=== PATIENT | male | born 1960 | race Caucasian/White ===

== ENCOUNTER 2021-06-21 16:31 | Inpatient (IN) ==
[2021-06-21 17:04] LABS: Basophils % 0.5 % (0.0-0.8); Eosinophils # 0.1 10*3/uL (0.0-0.87); Eosinophils % 1.8 % (0.00-10.9); Hematocrit 40.7 VOL% (42.0-52.0); Hemoglobin 13.7 GM/DL (14.0-18.0); Immature Granulocytes % 0.2 %; Immature Granulocytes Absolute 0.01 #; Lymphocytes # 1.7 10*3/uL (1.4-4.0); Lymphocytes % 25.6 % (21.2-54.2); Mean Corpuscular HGB Conc 33.7 GM/DL (32-36); Mean Corpuscular Volume 90.6 FL (87-102); Mean Platelet Volume 9.6 FL (9.6-12.0); Monocytes % 6.4 % (1.7-12.7); Neutrophils % 65.5 % (38.7-73.9); Platelet Count 215 T/CUMM (130-400); Red Blood Count 4.49 MC/CUMM (3.8-5.5); Red Cell Distribution Width 13.3 % (9.3-17.3); White Blood Count 6.6 T/CUMM (4-12)
[2021-06-21] MEDS ORDERED: MORPHINE 2 MG/1 ML SYRINGE ONE (17:32)
[2021-06-21] MEDS ORDERED: ASPIRIN 325 MG TABLET ONE (17:32)
[2021-06-21] MEDS ORDERED: MORPHINE 2 MG/1 ML SYRINGE IV STA ×2 (17:32→18:33)
[2021-06-21] MEDS ORDERED: NITROGLYCERIN SL 0.4 MG TABLET SL ONE (17:32)
[2021-06-21] MEDS ORDERED: NITROGLYCERIN SL 0.4 MG TABLET SL PRN (17:32)
[2021-06-21] MEDS ORDERED: ASPIRIN 325 MG TABLET PO STA (17:32)
[2021-06-21] MEDS ORDERED: ONDANSETRON 4 MG/2 ML VIAL ONE (17:37)
[2021-06-21 17:43] LABS: Albumin 3.8 G/DL (3.4-5.0); Bilirubin,Total 0.4 MG/DL (0.20-1.00); Calcium 8.9 MG/DL (8.5-10.1); Osmolality,Calculated 279.7 MOS/KG (273-304); Potassium 3.8 MMOL/L (3.5-5.1); Total Protein 6.8 G/DL (6.4-8.2)
[2021-06-21] MEDS ORDERED: SODIUM CHLORIDE 0.9% 500 ML IV STA (17:52)
[2021-06-21] MEDS ORDERED: ALUM/MAG/SIMETH/LIDO VISC 1:1 30 ML BOTTLE PO STA (18:29)
[2021-06-21] MEDS ORDERED: ONDANSETRON 4 MG/2 ML VIAL IV STA (18:34)
[2021-06-21] MEDS ORDERED: MORPHINE 2 MG/1 ML SYRINGE IV PRN (21:29)
[2021-06-21] MEDS ORDERED: ONDANSETRON 4 MG/2 ML VIAL IV PRN (21:29)
[2021-06-22] MEDS ORDERED: PANTOPRAZOLE 40 MG VIAL IV STA (00:29)
[2021-06-22] MEDS ORDERED: HYDROmorphone 2 MG/1 ML VIAL IV STA (00:29)
[2021-06-22] MEDS ORDERED: ONDANSETRON 4 MG/2 ML VIAL IV STA (00:29)
[2021-06-22] MEDS: LEVOTHYROXINE 100 MCG TABLET PO SCH (06:31)
[2021-06-22 06:32] LABS: Basophils % 0.3 % (0.0-0.8); Eosinophils % 0.2 % (0.00-10.9); Hematocrit 41.6 VOL% (42.0-52.0); Hemoglobin 13.8 GM/DL (14.0-18.0); Immature Granulocytes % 0.2 %; Immature Granulocytes Absolute 0.02 #; Lymphocytes % 10.8 % (21.2-54.2); Mean Corpuscular HGB Conc 33.2 GM/DL (32-36); Mean Corpuscular Volume 92.4 FL (87-102); Mean Platelet Volume 10.3 FL (9.6-12.0); Monocytes % 8.1 % (1.7-12.7); Neutrophils % 80.4 % (38.7-73.9); Platelet Count 185 T/CUMM (130-400); Red Cell Distribution Width 13.7 % (9.3-17.3); White Blood Count 9.6 T/CUMM (4-12)
[2021-06-22 06:56] LABS: Albumin 3.3 G/DL (3.4-5.0); Bilirubin,Total 0.8 MG/DL (0.20-1.00); Calcium 8.6 MG/DL (8.5-10.1); Osmolality,Calculated 278.5 MOS/KG (273-304); Potassium 3.6 MMOL/L (3.5-5.1); Total Protein 6.7 G/DL (6.4-8.2)
[2021-06-22] MEDS: PANTOPRAZOLE 40 MG VIAL IV SCH ×4 (09:00→20:34)
[2021-06-22] MEDS ORDERED: POTASSIUM CHLORIDE INJ 10 MEQ in SODIUM CHLORIDE 0.9% 1,000 ML IV SCH (13:30)
[2021-06-22] MEDS: ACETAMINOPHEN 325 MG TABLET PO PRN ×2 (16:16→23:40)
[2021-06-22] MEDS: POTASSIUM CHLORIDE INJ 10 MEQ in SODIUM CHLORIDE 0.9% 1,000 ML IV SCH (16:16)
[2021-06-22] MEDS ORDERED: IBUPROFEN 400 MG TABLET PO PRN (19:51)
[2021-06-22] MEDS ORDERED: SODIUM CHLORIDE 0.9% 500 ML IV ONE (19:51)
[2021-06-22] MEDS: CIPROFLOXACIN INJ 400 MG/200 ML PREMIX IV SCH (21:12)
[2021-06-22] MEDS: metroNIDAZOLE INJ 500 MG/100 ML PREMIX IV SCH (22:12)
[2021-06-23] MEDS: POTASSIUM CHLORIDE INJ 10 MEQ in SODIUM CHLORIDE 0.9% 1,000 ML IV SCH (05:06)
[2021-06-23] MEDS: metroNIDAZOLE INJ 500 MG/100 ML PREMIX IV SCH ×3 (05:06→23:58)
[2021-06-23] MEDS: LEVOTHYROXINE 100 MCG TABLET PO SCH (05:51)
[2021-06-23 05:57] LABS: Albumin 2.6 G/DL (3.4-5.0); Bilirubin,Total 1.5 MG/DL (0.20-1.00); Calcium 7.9 MG/DL (8.5-10.1); Free T4 (Free Thyroxine) 1.13 NG/DL (0.76-1.46); Osmolality,Calculated 275.7 MOS/KG (273-304); Potassium 3.3 MMOL/L (3.5-5.1); Thyroid Stimulating Hormone 2.14 uIU/ml (0.358-3.74); Total Protein 5.8 G/DL (6.4-8.2)
[2021-06-23] MEDS ORDERED: INDOCYANINE GREEN 25 MG VIAL IV ONE (09:00)
[2021-06-23] MEDS: PANTOPRAZOLE 40 MG VIAL IV SCH ×2 (09:37→21:52)
[2021-06-23] MEDS: CIPROFLOXACIN INJ 400 MG/200 ML PREMIX IV SCH ×2 (09:42→21:52)
[2021-06-23 10:37] LABS: Basophils % 0.2 % (0.2-1.0); Eosinophils # 0.1 # (0.0-0.70); Eosinophils % 0.4 % (0.0-10.0); Hematocrit 37.3 VOL% (42.0-52.0); Hemoglobin 12.7 GM/DL (14.0-18.0); Lymphocytes % 7.6 % (20.5-45.5); Mean Corpuscular Volume 92.1 FL (80-94); Mean Platelet Volume 10.9 FL (7.4-10.4); Monocytes % 6.4 % (5.5-11.7); Neutrophils % 84.9 % (43.0-65.0); Platelet Count 134 T/CUMM (130-400); Red Blood Count 4.05 MC/CUMM (4.70-6.10); Red Cell Distribution Width 13.9 % (11.5-15.5); White Blood Count 12.9 T/CUMM (4.8-10.8)
[2021-06-23] MEDS ORDERED: ACETAMINOPHEN 650 MG SUPP RECTAL ONE (12:06)
[2021-06-23] MEDS ORDERED: ONDANSETRON 4 MG/2 ML VIAL ONE (12:08)
[2021-06-23] MEDS ORDERED: ROCURONIUM 50 MG/5 ML VIAL IV ONE ×2 (12:08→13:58)
[2021-06-23] MEDS ORDERED: fentaNYL 100 MCG/2 ML VIAL ONE ×2 (12:08→13:43)
[2021-06-23] MEDS ORDERED: MIDAZOLAM 2 MG/2 ML VIAL ONE (12:08)
[2021-06-23] MEDS ORDERED: propofoL 200 MG/20 ML VIAL IV ONE (12:08)
[2021-06-23] MEDS ORDERED: LIDOCAINE 2% 5 ML VIAL ONE (12:08)
[2021-06-23] MEDS ORDERED: BUPIVACAINE MPF 0.25% 30 ML VIAL ONE (12:50)
[2021-06-23] MEDS ORDERED: LIDOCAINE 1%/EPI INJ 20 ML VIAL ONE (12:50)
[2021-06-23] MEDS ORDERED: LACTATED RINGERS 1,000 ML IV SCH (13:00)
[2021-06-23] MEDS ORDERED: PHENYLEPHRINE 1 MG/10 ML SYRINGE IV ONE (13:22)
[2021-06-23] MEDS ORDERED: KETOROLAC 30 MG/1 ML VIAL ONE (13:22)
[2021-06-23] MEDS ORDERED: SEVOFLURANE 1 UNIT/15 MINUTE INH ONE ×2 (13:47→13:49)
[2021-06-23] MEDS ORDERED: NEOSTIGMINE 10 MG/10 ML VIAL ONE (14:03)
[2021-06-23] MEDS ORDERED: GLYCOPYRROLATE 0.4 MG/2 ML VIAL ONE (14:03)
[2021-06-23] MEDS ORDERED: LACTATED RINGERS 1,000 ML IV ONE (14:12)
[2021-06-23] MEDS: LACTATED RINGERS 1,000 ML IV SCH (17:56)
[2021-06-23] MEDS ORDERED: MORPHINE 4 MG/1 ML VIAL IV PRN (22:42)
[2021-06-24] MEDS: LACTATED RINGERS 1,000 ML IV SCH (05:02)
[2021-06-24 06:16] LABS: Basophils % 0.1 % (0.0-0.8); Eosinophils % 0.2 % (0.00-10.9); Hematocrit 35.5 VOL% (42.0-52.0); Hemoglobin 11.7 GM/DL (14.0-18.0); Immature Granulocytes % 0.9 %; Immature Granulocytes Absolute 0.08 #; Lymphocytes # 0.9 10*3/uL (1.4-4.0); Lymphocytes % 9.9 % (21.2-54.2); Mean Corpuscular Volume 93.7 FL (87-102); Mean Platelet Volume 10.7 FL (9.6-12.0); Monocytes % 6.3 % (1.7-12.7); Neutrophils % 82.6 % (38.7-73.9); Platelet Count 152 T/CUMM (130-400); Red Blood Count 3.79 MC/CUMM (3.8-5.5); Red Cell Distribution Width 14.2 % (9.3-17.3); White Blood Count 9.1 T/CUMM (4-12)
[2021-06-24 06:24] LABS: Albumin 2.1 G/DL (3.4-5.0); Bilirubin,Direct 0.3 MG/DL (0.0-0.20); Bilirubin,Total 2.1 MG/DL (0.20-1.00); Calcium 7.5 MG/DL (8.5-10.1); Potassium 3.9 MMOL/L (3.5-5.1); Total Protein 5.7 G/DL (6.4-8.2)
[2021-06-24 06:43] LABS: Band Neutrophils 3 % (0-10); Hypochromia Slight; Lymphocytes 6 % (20-55); Microcytosis Slight; Platelet Estimate Adequate; Segmented Neutrophils 86 % (50-85); Total Cells Counted 100
[2021-06-24] MEDS: CIPROFLOXACIN INJ 400 MG/200 ML PREMIX IV SCH ×2 (08:02→21:23)
[2021-06-24] MEDS: KETOROLAC 30 MG/1 ML VIAL IV SCH ×3 (08:02→21:23)
[2021-06-24] MEDS: PANTOPRAZOLE 40 MG VIAL IV SCH ×2 (08:03→21:22)
[2021-06-24] MEDS: DEXT 5% NACL 0.45% KCL 20 MEQ 20 MEQ/1,000 ML BAG IV SCH ×2 (08:33→23:27)
[2021-06-24] MEDS ORDERED: PANTOPRAZOLE 40 MG TABLET PO SCH (09:00)
[2021-06-24] MEDS: metroNIDAZOLE INJ 500 MG/100 ML PREMIX IV SCH ×3 (14:51→21:23)
[2021-06-24] MEDS: LEVOTHYROXINE 100 MCG TABLET PO SCH (14:55)
[2021-06-24] MEDS: LEVOTHYROXINE 112 MCG TABLET PO SCH (15:04)
[2021-06-25] MEDS: KETOROLAC 30 MG/1 ML VIAL IV SCH ×4 (02:59→21:25)
[2021-06-25] MEDS: LEVOTHYROXINE 112 MCG TABLET PO SCH (05:44)
[2021-06-25] MEDS: metroNIDAZOLE INJ 500 MG/100 ML PREMIX IV SCH (05:45)
[2021-06-25 06:30] LABS: Albumin 1.8 G/DL (3.4-5.0); Bilirubin,Total 0.9 MG/DL (0.20-1.00); Calcium 7.6 MG/DL (8.5-10.1); Osmolality,Calculated 265.5 MOS/KG (273-304); Potassium 4.1 MMOL/L (3.5-5.1); Total Protein 5.7 G/DL (6.4-8.2)
[2021-06-25 06:58] LABS: Basophils % 0.3 % (0.0-0.8); Eosinophils # 0.2 10*3/uL (0.0-0.87); Eosinophils % 2.7 % (0.00-10.9); Hematocrit 32.2 VOL% (42.0-52.0); Hemoglobin 10.6 GM/DL (14.0-18.0); Immature Granulocytes % 0.6 %; Immature Granulocytes Absolute 0.04 #; Lymphocytes # 0.9 10*3/uL (1.4-4.0); Lymphocytes % 12.8 % (21.2-54.2); Mean Corpuscular HGB Conc 32.9 GM/DL (32-36); Mean Corpuscular Volume 92.8 FL (87-102); Mean Platelet Volume 10.2 FL (9.6-12.0); Monocytes % 7.9 % (1.7-12.7); Neutrophils % 75.7 % (38.7-73.9); Platelet Count 152 T/CUMM (130-400); Red Blood Count 3.47 MC/CUMM (3.8-5.5); Red Cell Distribution Width 14.2 % (9.3-17.3); White Blood Count 6.6 T/CUMM (4-12)
[2021-06-25 07:23] LABS: Band Neutrophils 3 % (0-10); Eosinophils 6 % (0-10); Lymphocytes 9 % (20-55); Microcytosis Slight; Segmented Neutrophils 76 % (50-85); Total Cells Counted 100
[2021-06-25] MEDS: CIPROFLOXACIN 500 MG TABLET PO SCH ×2 (08:58→21:25)
[2021-06-25] MEDS: PANTOPRAZOLE 40 MG TABLET PO SCH ×2 (08:58→21:25)
[2021-06-25] MEDS: metroNIDAZOLE 500 MG TABLET PO SCH ×2 (14:15→21:25)
[2021-06-25] MEDS ORDERED: ENOXAPARIN 40 MG/0.4 ML SYRINGE SUBCUT SCH (21:00)
[2021-06-26] MEDS: KETOROLAC 30 MG/1 ML VIAL IV SCH ×2 (03:52→09:10)
[2021-06-26 05:42] LABS: Calcium 7.5 MG/DL (8.5-10.1); Osmolality,Calculated 275.7 MOS/KG (273-304); Potassium 3.6 MMOL/L (3.5-5.1)
[2021-06-26] MEDS: LEVOTHYROXINE 112 MCG TABLET PO SCH (05:42)
[2021-06-26] MEDS ORDERED: CEFUROXIME 500 MG TABLET PO SCH (09:00)
[2021-06-26] MEDS: PANTOPRAZOLE 40 MG TABLET PO SCH (09:09)
[2021-06-26 11:03] VITALS: BP 130/62
== END 2021-06-26 09:32 | disposition home or self-care (01) | DRG 417 ==
LOC: N.5E 16:31 → N.ED 16:31 → N.5E 06-22 00:36
PROVIDERS: ADMIT Family Medicine; ATTEND Family Medicine